=== PATIENT | female | born 1965 | race Caucasian/White ===

== ENCOUNTER → 2024-03-07 06:45 | Outpatient (REF) | payer OTHER, SELFPAY | LOC: PAVMRI 06:45 | PROVIDERS: ATTENDING PHYSICIAN Nurse Practitioner Adult Health | DX: R51.9 Headache, unspecified (principal) | CPT/HCPCS: 70551 ==

== ENCOUNTER → 2024-12-15 14:32 | Outpatient (REF) | payer OTHER, SELFPAY | LOC: WDC 14:32 | PROVIDERS: ATTENDING PHYSICIAN Nurse Practitioner Adult Health | DX: Z12.31 Encounter for screening mammogram for malignant neoplasm of breast (principal) | CPT/HCPCS: 77063; 77067 ==

== ENCOUNTER → 2025-06-07 20:33 | Outpatient (REF) | payer OTHER, SELFPAY | LOC: PAVMRI 20:33 | PROVIDERS: ATTENDING PHYSICIAN Psychiatry & Neurology Neurology; FAMILY PHYSICIAN Nurse Practitioner Adult Health | DX: G30.0 Alzheimer's disease with early onset (principal) | CPT/HCPCS: 70551 ==